=== PATIENT | male | born 1960 | race Caucasian/White ===

== ENCOUNTER 2020-03-05 12:30 | Outpatient (CLI) | payer MEDICAID ==
[~2020-03-05 12:30] MED LIST: ATORVASTATIN CA20 MG ORAL; LOSARTAN-HCTZ1 EAC1 ORAL; METFORMIN HCL1000 M1 ORAL; PRILOSEC OTC20 MG ORAL; PROSCAR5 MG ORAL; WELLBUTRIN SR200 MG ORAL
--- NOTE | 2020-03-06 15:01 | General Progress Note ---
Subjective ROS Limited/Unobtainable: Yes Allergies: Coded Allergies: ERYTHROMYCIN BASE (Verified Allergy, Mild, 01/15/20) NAUSEA Objective General Appearance: alert EENT: normal ENT inspection Neck: supple Cardiovascular: normal rate Respiratory/Chest: lungs clear Abdomen: normal bowel sounds, non tender, soft Extremities: non-tender Assessment/Plan Assessment/Plan: gastritis colon polyps hemorrhoids diverticulosis ppi repeat colonoscopy in 5 years Ronny Kelly MD Mar 06, 2020 15:01
== END 2020-03-05 14:30 | disposition home or self-care (01) ==
LOC: PAN 12:30
DX: K29.70 Gastritis, unspecified, without bleeding (principal); K63.5 Polyp of colon; K64.9 Unspecified hemorrhoids; K57.90 Diverticulosis of intestine, part unspecified, without perforation or abscess without bleeding; Z88.8 Allergy status to other drugs, medicaments and biological substances
CPT/HCPCS: 99212